=== PATIENT | male | born 1965 | race Caucasian/White ===

== ENCOUNTER 2018-08-15 14:27 | Inpatient (IN) ==
[2018-08-15] MEDS ORDERED: MORPHINE 4 MG/1 ML VIAL IV PRN (14:38)
[2018-08-15] MEDS ORDERED: MAGNESIUM SULF RIDER 4 GM in PREMIX 1 EACH IV PRN (14:38)
[2018-08-15] MEDS ORDERED: MAGNESIUM SULF RIDER 2 GM in PREMIX 1 EACH IV PRN (14:38)
[2018-08-15] MEDS ORDERED: ONDANSETRON 4 MG/2 ML VIAL IV PRN (14:38)
[2018-08-15] MEDS ORDERED: DOCUSATE SODIUM 100 MG CAPSULE PO PRN (14:38)
[2018-08-15] MEDS ORDERED: chlordiazePOXIDE 25 MG CAPSULE PO PRN (15:38)
[2018-08-15] MEDS: FUROSEMIDE 40 MG/4 ML VIAL IV SCH (15:50)
[2018-08-15] MEDS: NICOTINE 21 MG/24 HR PATCH TRANSDERM SCH (15:50)
[2018-08-15] MEDS: SPIRONOLACTONE 25 MG TABLET PO SCH (15:50)
[2018-08-15 15:54] LABS: Basophils # 0.1 10*3/uL (0.0-0.2); Basophils % 0.8 % (0.0-0.8); Hematocrit 38.8 VOL% (42.0-52.0); Hemoglobin 12.9 GM/DL (14.0-18.0); Immature Granulocytes % 0.4 %; Immature Granulocytes Absolute 0.04 #; Lymphocytes # 1.4 10*3/uL (1.4-4.0); Mean Corpuscular HGB Conc 33.2 GM/DL (32-36); Mean Corpuscular Hemoglobin 32 PG (27-34); Mean Platelet Volume 10.6 FL (9.6-12.0); Monocytes % 11.4 % (1.7-12.7); Neutrophils # 6.4 10*3/uL (1.4-7.4); Neutrophils % 71.4 % (38.7-73.9); Platelet Count 208 T/CUMM (130-400); Red Blood Count 4.04 MC/CUMM (3.8-5.5); Red Cell Distribution Width 13.1 % (9.3-17.3); White Blood Count 8.9 T/CUMM (4-12)
[2018-08-15] MEDS ORDERED: ENOXAPARIN 100 MG/ML SYRINGE SUBCUT ONE (16:00)
[2018-08-15 16:19] LABS: Albumin 3.5 G/DL (3.4-5.0); Bilirubin,Total 1.2 MG/DL (0.2-1.0); Calcium 8.9 MG/DL (8.5-10.1); Osmolality,Calculated 259.9 MOS/KG (273-304); Total Protein 7.7 G/DL (6.4-8.3)
[2018-08-15 16:26] LABS: Troponin I 0.265 NG/ML (0.00-0.045)
[2018-08-15 16:49] LABS: Apearance,Urine CLEAR (Clear); Bilirubin,Urine Negative (Negative); Blood, Urine Negative (Negative); Glucose,Urine (UA) Negative (Negative); Ketones,Urine Negative (Negative); Nitrite,Urine Negative (Negative); Protein,Urine Negative; RBC,Urine <1 /HPF (0-4); Urine Color Straw (Yellow); Urine Specific Gravity 1.006 (1.001-1.035); Urine Urobilinogen < 2.0 EU/DL (0.2-1.0); WBC,Urine <1 /HPF (0-6)
[2018-08-15] MEDS ORDERED: CALCIUM GLUCONATE 1,000 MG/10 ML VIAL IV ONE (17:10)
[2018-08-15 18:16] LABS: Troponin I 0.259 NG/ML (0.00-0.045)
[2018-08-15] MEDS: LISINOPRIL 2.5 MG TABLET PO SCH (20:29)
[2018-08-15] MEDS: THIAMINE 100 MG TABLET PO SCH (20:32)
[2018-08-15] MEDS: LORazepam 0.5 MG TABLET PO SCH (20:32)
[2018-08-15] MEDS: FOLIC ACID 1 MG TABLET PO SCH (20:32)
[2018-08-15] MEDS: CARVEDILOL 3.125 MG TABLET PO SCH (20:32)
[2018-08-15 21:00] LABS: Troponin I 0.294 NG/ML (0.00-0.045)
[2018-08-16 04:48] LABS: Basophils # 0.1 10*3/uL (0.0-0.2); Basophils % 0.8 % (0.0-0.8); Eosinophils % 0.1 % (0.00-10.9); Hematocrit 37.9 VOL% (42.0-52.0); Hemoglobin 12.4 GM/DL (14.0-18.0); Immature Granulocytes % 0.3 %; Immature Granulocytes Absolute 0.03 #; Lymphocytes # 1.5 10*3/uL (1.4-4.0); Lymphocytes % 17.6 % (21.2-54.2); Mean Corpuscular HGB Conc 32.7 GM/DL (32-36); Mean Corpuscular Hemoglobin 31 PG (27-34); Mean Corpuscular Volume 95.7 FL (87-102); Mean Platelet Volume 10.7 FL (9.6-12.0); Monocytes # 1.1 10*3/uL (0.11-0.8); Monocytes % 12.1 % (1.7-12.7); Neutrophils # 6.1 10*3/uL (1.4-7.4); Neutrophils % 69.1 % (38.7-73.9); Platelet Count 194 T/CUMM (130-400); Red Blood Count 3.96 MC/CUMM (3.8-5.5); Red Cell Distribution Width 13.1 % (9.3-17.3); White Blood Count 8.8 T/CUMM (4-12)
[2018-08-16 05:03] LABS: Albumin 3.1 G/DL (3.4-5.0); Bilirubin,Total 1.2 MG/DL (0.2-1.0); Calcium 8.4 MG/DL (8.5-10.1); Osmolality,Calculated 259.9 MOS/KG (273-304); Potassium 3.7 MMOL/L (3.5-5.1); Total Protein 7.6 G/DL (6.4-8.3)
[2018-08-16] MEDS: CARVEDILOL 3.125 MG TABLET PO SCH (08:01)
[2018-08-16] MEDS: PANTOPRAZOLE 40 MG TABLET PO SCH (08:01)
[2018-08-16] MEDS: ASPIRIN EC 81 MG TABLET PO SCH (08:01)
[2018-08-16] MEDS: FUROSEMIDE 40 MG/4 ML VIAL IV SCH ×2 (08:01→17:05)
[2018-08-16] MEDS: LISINOPRIL 2.5 MG TABLET PO SCH (08:01)
[2018-08-16] MEDS: THIAMINE 100 MG TABLET PO SCH ×2 (08:01→21:35)
[2018-08-16] MEDS: LORazepam 0.5 MG TABLET PO SCH ×2 (08:01→21:36)
[2018-08-16] MEDS: SPIRONOLACTONE 25 MG TABLET PO SCH (08:01)
[2018-08-16] MEDS: FOLIC ACID 1 MG TABLET PO SCH ×2 (08:01→21:35)
[2018-08-16] MEDS: NICOTINE 21 MG/24 HR PATCH TRANSDERM SCH (08:02)
[2018-08-16] MEDS: ISOSORBIDE MONONITRATE 30 MG TABLET PO SCH (11:11)
[2018-08-16 11:21] LABS: Barbiturates Screen,Urine Negative (Negative); Benzodiazepines Screen,Urine Negative (Negative); Cannabinoid Screen,Urine Negative (Negative); Opiate Screen,Urine Negative (Negative); Phencyclidine Screen,Urine Negative (Negative)
[2018-08-16 11:42] LABS: Apearance,Urine CLEAR (Clear); Bilirubin,Urine Negative (Negative); Blood, Urine Negative (Negative); Glucose,Urine (UA) Negative (Negative); Ketones,Urine Negative (Negative); Nitrite,Urine Negative (Negative); Protein,Urine Negative; Urine Color Straw (Yellow); Urine Specific Gravity 1.003 (1.001-1.035); Urine Urobilinogen < 2.0 EU/DL (0.2-1.0); WBC,Urine <1 /HPF (0-6)
[2018-08-16 12:04] LABS: Hepatitis A Ab IgM Quant 0.15 Index; Hepatitis A Ab IgM Result Negative (Negative); Hepatitis B Core IgM Quant 0.12 Index; Hepatitis B Core IgM Result Negative (Negative); Hepatitis B Surface Ag Quant < 0.10 Index; Hepatitis B Surface Ag Result Negative (Negative); Hepatitis C Virus Ab Quant > 11.00 Index; Hepatitis C Virus Ab Result Positive (Negative)
[2018-08-16] MEDS ORDERED: ENOXAPARIN 40 MG/0.4 ML SYRINGE SUBCUT SCH (15:00)
[2018-08-16] MEDS ORDERED: LEVOFLOXACIN INJ 500 MG in PREMIX 1 EACH IV SCH (15:00)
[2018-08-16] MEDS: ALBUTEROL 1.25 MG/3 ML NEB RESP TX SCH ×2 (16:10→19:24)
[2018-08-16] MEDS ORDERED: CARVEDILOL 6.25 MG TABLET PO SCH (21:00)
[2018-08-16] MEDS ORDERED: SERTRALINE 25 MG TABLET PO SCH (21:00)
[2018-08-16] MEDS: SACUBITRIL/VALSARTAN 49-51 MG TABLET PO SCH (21:35)
[2018-08-17] MEDS: ALBUTEROL 1.25 MG/3 ML NEB RESP TX SCH ×2 (02:28→07:26)
[2018-08-17 03:58] LABS: Basophils # 0.1 10*3/uL (0.0-0.2); Basophils % 0.9 % (0.0-0.8); Eosinophils % 0.7 % (0.00-10.9); Hematocrit 37.2 VOL% (42.0-52.0); Immature Granulocytes % 0.4 %; Immature Granulocytes Absolute 0.02 #; Lymphocytes # 1.7 10*3/uL (1.4-4.0); Lymphocytes % 29.3 % (21.2-54.2); Mean Corpuscular HGB Conc 32.3 GM/DL (32-36); Mean Corpuscular Hemoglobin 31 PG (27-34); Mean Corpuscular Volume 96.6 FL (87-102); Mean Platelet Volume 10.9 FL (9.6-12.0); Monocytes # 0.6 10*3/uL (0.11-0.8); Monocytes % 11.2 % (1.7-12.7); Neutrophils # 3.3 10*3/uL (1.4-7.4); Neutrophils % 57.5 % (38.7-73.9); Platelet Count 179 T/CUMM (130-400); Red Blood Count 3.85 MC/CUMM (3.8-5.5); White Blood Count 5.7 T/CUMM (4-12)
[2018-08-17 04:17] LABS: Calcium 7.8 MG/DL (8.5-10.1); Osmolality,Calculated 264.8 MOS/KG (273-304); Potassium 3.1 MMOL/L (3.5-5.1)
[2018-08-17] MEDS: POTASSIUM CHLORIDE 20 MEQ TABLET PO PRN ×2 (07:42→08:55)
[2018-08-17 07:59] VITALS: BP 118/68
[2018-08-17] MEDS ORDERED: CARVEDILOL 12.5 MG TABLET PO SCH (08:50)
[2018-08-17] MEDS ORDERED: LORazepam 0.5 MG TABLET PO PRN (08:50)
[2018-08-17] MEDS: NICOTINE 21 MG/24 HR PATCH TRANSDERM SCH (08:53)
[2018-08-17] MEDS: FUROSEMIDE 40 MG/4 ML VIAL IV SCH (08:53)
[2018-08-17] MEDS: ISOSORBIDE MONONITRATE 30 MG TABLET PO SCH (08:54)
[2018-08-17] MEDS: SACUBITRIL/VALSARTAN 49-51 MG TABLET PO SCH (08:54)
[2018-08-17] MEDS: FOLIC ACID 1 MG TABLET PO SCH (08:54)
[2018-08-17] MEDS: THIAMINE 100 MG TABLET PO SCH (08:55)
[2018-08-17] MEDS: ASPIRIN EC 81 MG TABLET PO SCH (08:55)
[2018-08-17] MEDS: PANTOPRAZOLE 40 MG TABLET PO SCH (08:55)
[2018-08-17] MEDS ORDERED: SPIRONOLACTONE 25 MG TABLET PO SCH (09:00)
[2018-08-17] MEDS ORDERED: POTASSIUM CHLORIDE 20 MEQ TABLET PO ONE (12:02)
[2018-08-17] MEDS ORDERED: FUROSEMIDE 40 MG/5 ML UDCUP PO SCH (16:00)
[2018-08-18] MEDS ORDERED: POTASSIUM CHLORIDE 20 MEQ TABLET PO SCH (09:00)
== END 2018-08-17 13:40 | disposition home or self-care (01) | DRG 292 ==
LOC: N.ICU 15:04 → N.TELES 08-16 14:42
PROVIDERS: ADMIT Internal Medicine Cardiovascular Disease; ATTEND Internal Medicine Cardiovascular Disease

== ENCOUNTER 2018-11-01 15:37 | Inpatient (IN) ==
[2018-11-01] MEDS ORDERED: FUROSEMIDE 100 MG/10 ML VIAL IV STA (17:24)
[2018-11-01] MEDS ORDERED: ONDANSETRON 4 MG/2 ML VIAL IV STA (17:24)
[2018-11-01] MEDS ORDERED: methylPREDNISolone SOD SUC 125 MG/2 ML VIAL IV STA (17:24)
[2018-11-01] MEDS ORDERED: ALBUTEROL 2.5 MG/3 ML NEB RESP TX SCH (17:30)
[2018-11-01] MEDS ORDERED: AMIODARONE INJ 150 MG in DEXTROSE 5% 100 ML IV ONE (18:04)
[2018-11-01 18:16] LABS: Basophils # 0.1 10*3/uL (0.0-0.2); Basophils % 0.8 % (0.0-0.8); Eosinophils # 0.5 10*3/uL (0.0-0.87); Eosinophils % 4.8 % (0.00-10.9); Hematocrit 37.1 VOL% (42.0-52.0); Hemoglobin 11.6 GM/DL (14.0-18.0); Immature Granulocytes % 0.3 %; Immature Granulocytes Absolute 0.03 #; Lymphocytes # 1.8 10*3/uL (1.4-4.0); Lymphocytes % 18.9 % (21.2-54.2); Mean Corpuscular HGB Conc 31.3 GM/DL (32-36); Mean Corpuscular Volume 91.6 FL (87-102); Mean Platelet Volume 10.9 FL (9.6-12.0); Monocytes % 12.6 % (1.7-12.7); Neutrophils % 62.6 % (38.7-73.9); Platelet Count 207 T/CUMM (130-400); Red Blood Count 4.05 MC/CUMM (3.8-5.5); Red Cell Distribution Width 16.3 % (9.3-17.3); White Blood Count 9.6 T/CUMM (4-12)
[2018-11-01 18:29] LABS: INR 1.1; PT Patient Result 11.8 SECS
[2018-11-01 18:46] LABS: Apearance,Urine CLEAR (Clear); Bilirubin,Urine Negative (Negative); Blood, Urine Negative (Negative); Glucose,Urine (UA) Negative (Negative); Ketones,Urine Negative (Negative); Nitrite,Urine Negative (Negative); Protein,Urine Negative; RBC,Urine <1 /HPF (0-4); Urine Color Straw (Yellow); Urine Specific Gravity 1.005 (1.001-1.035)
[2018-11-01 18:53] LABS: Alanine Aminotransferase 66 U/L (16-61); Albumin 3.4 G/DL (3.4-5.0); Alkaline Phosphatase 126 U/L (45-117); Aspartate Amino Transferase 78 U/L (0-37); Blood Urea Nitrogen 19 MG/DL (7-18); Calcium 8.5 MG/DL (8.5-10.1); Glucose 86 MG/DL (74-106); Osmolality,Calculated 270.1 MOS/KG (273-304)
[2018-11-01] MEDS ORDERED: AMIODARONE INJ 450 MG in DEXTROSE 5% 241 ML IV SCH (19:00)
[2018-11-01 19:13] LABS: Barbiturates Screen,Urine Negative (Negative); Benzodiazepines Screen,Urine Negative (Negative); Cannabinoid Screen,Urine Negative (Negative); Opiate Screen,Urine Negative (Negative); Phencyclidine Screen,Urine Negative (Negative)
[2018-11-01] MEDS ORDERED: MAGNESIUM SULF RIDER 2 GM in PREMIX 1 EACH IV PRN (20:54)
[2018-11-01] MEDS ORDERED: MAGNESIUM SULF RIDER 4 GM in PREMIX 1 EACH IV PRN (20:54)
[2018-11-01] MEDS ORDERED: ONDANSETRON 4 MG/2 ML VIAL IV PRN (20:54)
[2018-11-02] MEDS: ENOXAPARIN 40 MG/0.4 ML SYRINGE SUBCUT SCH ×2 (01:04→21:03)
[2018-11-02] MEDS: CARVEDILOL 12.5 MG TABLET PO SCH ×3 (01:05→16:32)
[2018-11-02] MEDS: SACUBITRIL/VALSARTAN 49-51 MG TABLET PO SCH ×2 (01:05→21:03)
[2018-11-02] MEDS: buPROPion 75 MG TABLET PO SCH ×3 (01:05→21:04)
[2018-11-02] MEDS ORDERED: AMIODARONE INJ 450 MG in DEXTROSE 5% 241 ML IV SCH (02:00)
[2018-11-02 07:29] LABS: Basophils % 0.1 % (0.0-0.8); Eosinophils % 0.1 % (0.00-10.9); Hematocrit 38.4 VOL% (42.0-52.0); Hemoglobin 12.1 GM/DL (14.0-18.0); Immature Granulocytes % 0.6 %; Immature Granulocytes Absolute 0.05 #; Lymphocytes # 0.8 10*3/uL (1.4-4.0); Lymphocytes % 9.9 % (21.2-54.2); Mean Corpuscular HGB Conc 31.5 GM/DL (32-36); Mean Platelet Volume 11.2 FL (9.6-12.0); Monocytes % 2.6 % (1.7-12.7); Neutrophils % 86.7 % (38.7-73.9); Platelet Count 217 T/CUMM (130-400); Red Blood Count 4.22 MC/CUMM (3.8-5.5); Red Cell Distribution Width 16.5 % (9.3-17.3); White Blood Count 8.1 T/CUMM (4-12)
[2018-11-02 07:50] LABS: Albumin 3.2 G/DL (3.4-5.0); Bilirubin,Total 1.3 MG/DL (0.2-1.0); Calcium 8.2 MG/DL (8.5-10.1); Osmolality,Calculated 268.8 MOS/KG (273-304); Total Protein 8.1 G/DL (6.4-8.3)
[2018-11-02] MEDS: ISOSORBIDE MONONITRATE 30 MG TABLET PO SCH (10:56)
[2018-11-02] MEDS: FOLIC ACID 1 MG TABLET PO SCH ×2 (10:56→21:03)
[2018-11-02] MEDS: FUROSEMIDE 40 MG/4 ML VIAL IV SCH ×2 (10:56→16:32)
[2018-11-02] MEDS: POTASSIUM CHLORIDE 20 MEQ TABLET PO SCH (10:57)
[2018-11-02] MEDS: ASPIRIN CHEW 81 MG TABLET PO SCH (10:57)
[2018-11-02] MEDS: THIAMINE 100 MG TABLET PO SCH ×2 (10:58→21:03)
[2018-11-02] MEDS: SPIRONOLACTONE 25 MG TABLET PO SCH (10:58)
[2018-11-02] MEDS: PANTOPRAZOLE 40 MG TABLET PO SCH (11:02)
[2018-11-03 05:45] LABS: Albumin 2.8 G/DL (3.4-5.0); Bilirubin,Total 1.2 MG/DL (0.2-1.0); Calcium 8.4 MG/DL (8.5-10.1); Osmolality,Calculated 272.7 MOS/KG (273-304); Total Protein 7.2 G/DL (6.4-8.3)
[2018-11-03] MEDS: FUROSEMIDE 40 MG/4 ML VIAL IV SCH (08:27)
[2018-11-03] MEDS: CARVEDILOL 12.5 MG TABLET PO SCH ×2 (08:27→16:59)
[2018-11-03] MEDS: FOLIC ACID 1 MG TABLET PO SCH ×2 (09:34→20:10)
[2018-11-03] MEDS: ISOSORBIDE MONONITRATE 30 MG TABLET PO SCH (09:35)
[2018-11-03] MEDS: ASPIRIN CHEW 81 MG TABLET PO SCH (09:35)
[2018-11-03] MEDS: THIAMINE 100 MG TABLET PO SCH ×2 (09:35→20:10)
[2018-11-03] MEDS: POTASSIUM CHLORIDE 20 MEQ TABLET PO SCH (09:35)
[2018-11-03] MEDS: PANTOPRAZOLE 40 MG TABLET PO SCH (09:35)
[2018-11-03] MEDS: SPIRONOLACTONE 25 MG TABLET PO SCH (09:36)
[2018-11-03] MEDS: buPROPion 75 MG TABLET PO SCH ×2 (09:44→20:10)
[2018-11-03] MEDS: ENOXAPARIN 40 MG/0.4 ML SYRINGE SUBCUT SCH (20:09)
[2018-11-03] MEDS: SACUBITRIL/VALSARTAN 49-51 MG TABLET PO SCH (20:09)
[2018-11-04 05:25] LABS: Basophils # 0.1 10*3/uL (0.0-0.2); Basophils % 0.7 % (0.0-0.8); Eosinophils # 0.1 10*3/uL (0.0-0.87); Eosinophils % 0.8 % (0.00-10.9); Hematocrit 37.3 VOL% (42.0-52.0); Hemoglobin 11.7 GM/DL (14.0-18.0); Immature Granulocytes % 0.4 %; Immature Granulocytes Absolute 0.05 #; Lymphocytes # 2.8 10*3/uL (1.4-4.0); Mean Corpuscular HGB Conc 31.4 GM/DL (32-36); Mean Corpuscular Volume 91.2 FL (87-102); Mean Platelet Volume 11.5 FL (9.6-12.0); Monocytes % 9.1 % (1.7-12.7); Platelet Count 241 T/CUMM (130-400); Red Blood Count 4.09 MC/CUMM (3.8-5.5); Red Cell Distribution Width 16.3 % (9.3-17.3); White Blood Count 11.8 T/CUMM (4-12)
[2018-11-04 05:46] LABS: Albumin 2.8 G/DL (3.4-5.0); Calcium 8.3 MG/DL (8.5-10.1); Osmolality,Calculated 274.5 MOS/KG (273-304); Total Protein 6.9 G/DL (6.4-8.3)
[2018-11-04] MEDS ORDERED: FUROSEMIDE 40 MG/4 ML VIAL IV SCH (09:00)
[2018-11-04] MEDS: POTASSIUM CHLORIDE 20 MEQ TABLET PO SCH (09:05)
[2018-11-04] MEDS: PANTOPRAZOLE 40 MG TABLET PO SCH (09:06)
[2018-11-04] MEDS: ASPIRIN CHEW 81 MG TABLET PO SCH (09:07)
[2018-11-04] MEDS: SPIRONOLACTONE 25 MG TABLET PO SCH (09:07)
[2018-11-04] MEDS: THIAMINE 100 MG TABLET PO SCH (09:07)
[2018-11-04] MEDS: FOLIC ACID 1 MG TABLET PO SCH (09:07)
[2018-11-04] MEDS: ISOSORBIDE MONONITRATE 30 MG TABLET PO SCH (09:07)
[2018-11-04] MEDS: buPROPion 75 MG TABLET PO SCH (09:07)
[2018-11-04] MEDS: CARVEDILOL 12.5 MG TABLET PO SCH (09:08)
[2018-11-04 12:35] VITALS: BP 90/47
== END 2018-11-04 14:45 | disposition home or self-care (01) | DRG 308 ==
LOC: N.ED 15:37 → N.EDINP 20:54 → N.TELEN 22:12
PROVIDERS: ADMIT Internal Medicine; ATTEND Internal Medicine

== ENCOUNTER 2019-05-31 13:40 | Inpatient (IN) ==
[2019-05-31] MEDS ORDERED: FUROSEMIDE 40 MG/4 ML VIAL IV STA (14:24)
[2019-05-31 14:31] LABS: Basophils # 0.1 10*3/uL (0.0-0.2); Basophils % 1.4 % (0.0-0.8); Eosinophils # 0.3 10*3/uL (0.0-0.87); Eosinophils % 3.4 % (0.00-10.9); Hemoglobin 9.3 GM/DL (14.0-18.0); Immature Granulocytes % 0.3 %; Immature Granulocytes Absolute 0.02 #; Lymphocytes # 1.7 10*3/uL (1.4-4.0); Lymphocytes % 21.3 % (21.2-54.2); Mean Corpuscular Volume 83.3 FL (87-102); Mean Platelet Volume 9.9 FL (9.6-12.0); Monocytes % 10.6 % (1.7-12.7); Platelet Count 244 T/CUMM (130-400); Red Cell Distribution Width 16.4 % (9.3-17.3)
[2019-05-31 15:08] LABS: Albumin 3.3 G/DL (3.4-5.0); Bilirubin,Total 0.8 MG/DL (0.2-1.0); Calcium 8.9 MG/DL (8.5-10.1); Osmolality,Calculated 263.7 MOS/KG (273-304); Total Protein 8.4 G/DL (6.4-8.3)
[2019-05-31] MEDS ORDERED: NICOTINE 21 MG/24 HR PATCH TRANSDERM PRN (16:25)
[2019-05-31] MEDS ORDERED: LACTULOSE 20 GM/30 ML UDCUP PO PRN (16:25)
[2019-05-31] MEDS ORDERED: ACETAMINOPHEN 325 MG TABLET PO PRN (16:25)
[2019-05-31] MEDS ORDERED: ALBUTEROL/IPRATROPIUM 3 ML NEB RESP TX PRN (16:59)
[2019-05-31 17:00] LABS: INR 1.1
[2019-05-31] MEDS ORDERED: LEVOFLOXACIN INJ 500 MG in PREMIX 1 EACH IV SCH (17:00)
[2019-05-31 17:23] LABS: Thyroid Stimulating Hormone 3.09 uIU/ml (0.358-3.74)
[2019-05-31 18:25] LABS: Albumin 3.4 G/DL (3.4-5.0); Total Protein 8.7 G/DL (6.4-8.3)
[2019-05-31 18:39] LABS: Barbiturates Screen,Urine Negative (Negative); Benzodiazepines Screen,Urine Negative (Negative); Cannabinoid Screen,Urine Negative (Negative); Opiate Screen,Urine Negative (Negative); Phencyclidine Screen,Urine Negative (Negative)
[2019-05-31] MEDS: ALBUTEROL/IPRATROPIUM 3 ML NEB RESP TX SCH (19:18)
[2019-05-31] MEDS ORDERED: ENOXAPARIN 40 MG/0.4 ML SYRINGE SUBCUT SCH (21:00)
[2019-05-31 21:36] LABS: Troponin I 0.044 NG/ML (0.00-0.045)
[2019-05-31 22:03] LABS: Apearance,Urine CLEAR (Clear); Bilirubin,Urine Negative (Negative); Blood, Urine Negative (Negative); Glucose,Urine (UA) Negative (Negative); Ketones,Urine Negative (Negative); Nitrite,Urine Negative (Negative); Protein,Urine Negative; RBC,Urine 1 /HPF (0-4); Urine Color Yellow (Yellow); Urine Specific Gravity 1.017 (1.001-1.035); Urine Urobilinogen < 2.0 EU/DL (0.2-1.0); WBC,Urine <1 /HPF (0-6)
[2019-06-01] MEDS: ALBUTEROL/IPRATROPIUM 3 ML NEB RESP TX SCH ×3 (01:45→12:58)
[2019-06-01 05:52] LABS: Basophils # 0.1 10*3/uL (0.0-0.2); Basophils % 1.4 % (0.0-0.8); Eosinophils # 0.2 10*3/uL (0.0-0.87); Eosinophils % 2.3 % (0.00-10.9); Hematocrit 26.8 VOL% (42.0-52.0); Hemoglobin 8.3 GM/DL (14.0-18.0); Immature Granulocytes % 0.5 %; Immature Granulocytes Absolute 0.04 #; Lymphocytes # 1.6 10*3/uL (1.4-4.0); Lymphocytes % 20.6 % (21.2-54.2); Mean Corpuscular Volume 82.5 FL (87-102); Mean Platelet Volume 9.5 FL (9.6-12.0); Monocytes % 12.8 % (1.7-12.7); Neutrophils % 62.4 % (38.7-73.9); Platelet Count 220 T/CUMM (130-400); Red Blood Count 3.25 MC/CUMM (3.8-5.5); Red Cell Distribution Width 16.3 % (9.3-17.3); White Blood Count 7.9 T/CUMM (4-12)
[2019-06-01 06:05] LABS: Calcium 8.7 MG/DL (8.5-10.1); Osmolality,Calculated 261.8 MOS/KG (273-304)
[2019-06-01 06:14] LABS: Troponin I 0.062 NG/ML (0.00-0.045)
[2019-06-01] MEDS ORDERED: FUROSEMIDE 40 MG/4 ML VIAL IV SCH (08:00)
[2019-06-01] MEDS ORDERED: PANTOPRAZOLE 40 MG TABLET PO SCH (09:00)
[2019-06-01] MEDS ORDERED: ASPIRIN CHEW 81 MG TABLET PO SCH (09:00)
[2019-06-01] MEDS ORDERED: SPIRONOLACTONE 25 MG TABLET PO SCH (09:00)
[2019-06-01] MEDS ORDERED: SODIUM CHLORIDE 0.9% 1,000 ML IV PRN (09:16)
[2019-06-01] MEDS ORDERED: FUROSEMIDE 20 MG/2 ML VIAL IV ONE (11:46)
[2019-06-01 12:10] VITALS: BP 119/60
== END 2019-06-01 13:00 | disposition left against medical advice (07) | DRG 292 ==
LOC: N.ED 13:40 → N.EDINP 16:25 → N.2E 18:15
PROVIDERS: ADMIT Internal Medicine; ATTEND Internal Medicine
PROC: IRTHORA (2019-06-01 01:00)

== ENCOUNTER 2019-06-03 06:36 | Observation (INO) ==
[2019-06-03] MEDS ORDERED: FUROSEMIDE 40 MG/4 ML VIAL IV STA (07:02)
[2019-06-03] MEDS ORDERED: ALBUTEROL 2.5 MG/3 ML NEB RESP TX STA (07:03)
[2019-06-03 07:20] LABS: Basophils # 0.1 10*3/uL (0.0-0.2); Basophils % 1.5 % (0.0-0.8); Eosinophils # 0.2 10*3/uL (0.0-0.87); Eosinophils % 2.6 % (0.00-10.9); Hematocrit 27.6 VOL% (42.0-52.0); Hemoglobin 8.6 GM/DL (14.0-18.0); Immature Granulocytes % 0.4 %; Immature Granulocytes Absolute 0.03 #; Lymphocytes # 1.4 10*3/uL (1.4-4.0); Lymphocytes % 17.4 % (21.2-54.2); Mean Corpuscular HGB Conc 31.2 GM/DL (32-36); Mean Corpuscular Volume 83.4 FL (87-102); Mean Platelet Volume 9.4 FL (9.6-12.0); Monocytes % 11.6 % (1.7-12.7); Neutrophils % 66.5 % (38.7-73.9); Platelet Count 236 T/CUMM (130-400); Red Blood Count 3.31 MC/CUMM (3.8-5.5); Red Cell Distribution Width 16.1 % (9.3-17.3)
[2019-06-03 07:41] LABS: Calcium 8.7 MG/DL (8.5-10.1); Osmolality,Calculated 262.8 MOS/KG (273-304)
[2019-06-03] MEDS ORDERED: MAGNESIUM SULF RIDER 2 GM in PREMIX 1 EACH IV PRN (10:25)
[2019-06-03] MEDS ORDERED: MAGNESIUM SULF RIDER 4 GM in PREMIX 1 EACH IV PRN (10:25)
[2019-06-03] MEDS ORDERED: carvediloL 3.125 MG TABLET PO STA (10:33)
[2019-06-03] MEDS ORDERED: ISOSORBIDE MONONITRATE 30 MG TABLET PO SCH (12:00)
[2019-06-03] MEDS: NICOTINE 21 MG/24 HR PATCH TRANSDERM SCH (13:24)
[2019-06-03] MEDS: THIAMINE 100 MG TABLET PO SCH (13:24)
[2019-06-03] MEDS: SPIRONOLACTONE 25 MG TABLET PO SCH (13:24)
[2019-06-03 15:51] LABS: Barbiturates Screen,Urine Negative (Negative); Benzodiazepines Screen,Urine Negative (Negative); Cannabinoid Screen,Urine Negative (Negative); Opiate Screen,Urine Negative (Negative); Phencyclidine Screen,Urine Negative (Negative)
[2019-06-03] MEDS: FUROSEMIDE 40 MG/4 ML VIAL IV SCH (16:21)
[2019-06-03] MEDS: carvediloL 12.5 MG TABLET PO SCH (16:24)
[2019-06-03] MEDS ORDERED: LEVALBUTEROL 1.25 MG/3 ML NEB RESP TX PRN (16:32)
[2019-06-03] MEDS ORDERED: TEMAZEPAM 15 MG CAPSULE PO PRN (16:34)
[2019-06-03] MEDS ORDERED: SACUBITRIL/VALSARTAN 49-51 MG TABLET PO SCH (21:00)
[2019-06-03] MEDS: FOLIC ACID 1 MG TABLET PO SCH (21:23)
[2019-06-04 05:57] LABS: Basophils # 0.1 10*3/uL (0.0-0.2); Basophils % 1.3 % (0.0-0.8); Eosinophils # 0.3 10*3/uL (0.0-0.87); Eosinophils % 3.5 % (0.00-10.9); Hematocrit 25.9 VOL% (42.0-52.0); Immature Granulocytes % 0.4 %; Immature Granulocytes Absolute 0.03 #; Lymphocytes # 1.5 10*3/uL (1.4-4.0); Lymphocytes % 18.1 % (21.2-54.2); Mean Corpuscular HGB Conc 30.9 GM/DL (32-36); Mean Corpuscular Volume 82.2 FL (87-102); Monocytes % 14.3 % (1.7-12.7); Neutrophils % 62.4 % (38.7-73.9); Platelet Count 248 T/CUMM (130-400); Red Blood Count 3.15 MC/CUMM (3.8-5.5); White Blood Count 8.2 T/CUMM (4-12)
[2019-06-04 06:15] LABS: Albumin 3.3 G/DL (3.4-5.0); Bilirubin,Total 0.7 MG/DL (0.2-1.0); Calcium 8.4 MG/DL (8.5-10.1); Osmolality,Calculated 265.7 MOS/KG (273-304); Total Protein 8.2 G/DL (6.4-8.3)
[2019-06-04] MEDS ORDERED: SODIUM CHLORIDE 0.9% 1,000 ML IV PRN ×3 (08:11→11:33)
[2019-06-04 08:25] LABS: INR 1.1
[2019-06-04] MEDS ORDERED: POTASSIUM CHLORIDE 10 MEQ TABLET PO SCH (09:00)
[2019-06-04] MEDS ORDERED: LISINOPRIL 2.5 MG TABLET PO SCH (09:00)
[2019-06-04] MEDS ORDERED: METOPROLOL SUCCINATE XL 25 MG TABLET PO SCH (09:00)
[2019-06-04] MEDS: THIAMINE 100 MG TABLET PO SCH (09:37)
[2019-06-04] MEDS: carvediloL 12.5 MG TABLET PO SCH (09:37)
[2019-06-04] MEDS: NICOTINE 21 MG/24 HR PATCH TRANSDERM SCH (09:37)
[2019-06-04] MEDS: FOLIC ACID 1 MG TABLET PO SCH (09:38)
[2019-06-04] MEDS: FUROSEMIDE 40 MG/4 ML VIAL IV SCH ×2 (09:46→15:35)
[2019-06-04] MEDS: SPIRONOLACTONE 25 MG TABLET PO SCH (09:46)
[2019-06-04 12:04] LABS: % Iron Saturation 4.2 % (18-50); Ferritin 18.9 ng/ml (26-388)
[2019-06-04 13:10] LABS: Folate 9.6 NG/ML (5.4-24.0)
[2019-06-04 16:41] LABS: Albumin 3.4 G/DL (3.4-5.0)
[2019-06-04 16:56] LABS: Hematocrit 29.4 VOL% (42.0-52.0); Hemoglobin 9.2 GM/DL (14.0-18.0)
[2019-06-04 17:19] VITALS: BP 116/68
== END 2019-06-04 18:00 | disposition home or self-care (01) ==
LOC: N.ED 06:36 → N.EDINP 06:36 → N.2E 11:35
PROVIDERS: ADMIT Internal Medicine; ATTEND Internal Medicine
PROC: IRTHORA (2019-06-04 14:35)

== ENCOUNTER 2019-06-12 10:26 | Inpatient (IN) ==
[2019-06-12] MEDS ORDERED: FUROSEMIDE 100 MG/10 ML VIAL ONE (10:52)
[2019-06-12] MEDS ORDERED: FUROSEMIDE 100 MG/10 ML VIAL IV STA (10:56)
[2019-06-12] MEDS ORDERED: ALBUTEROL/IPRATROPIUM 3 ML NEB RESP TX STA (10:56)
[2019-06-12 11:04] LABS: Basophils # 0.1 10*3/uL (0.0-0.2); Basophils % 0.7 % (0.0-0.8); Eosinophils # 0.2 10*3/uL (0.0-0.87); Eosinophils % 1.6 % (0.00-10.9); Hematocrit 31.9 VOL% (42.0-52.0); Hemoglobin 9.7 GM/DL (14.0-18.0); Immature Granulocytes % 0.5 %; Immature Granulocytes Absolute 0.07 #; Lymphocytes # 1.2 10*3/uL (1.4-4.0); Lymphocytes % 8.8 % (21.2-54.2); Mean Corpuscular HGB Conc 30.4 GM/DL (32-36); Mean Corpuscular Volume 83.5 FL (87-102); Mean Platelet Volume 9.7 FL (9.6-12.0); Monocytes % 10.7 % (1.7-12.7); Neutrophils % 77.7 % (38.7-73.9); Platelet Count 286 T/CUMM (130-400); Red Blood Count 3.82 MC/CUMM (3.8-5.5); Red Cell Distribution Width 16.3 % (9.3-17.3); White Blood Count 13.8 T/CUMM (4-12)
[2019-06-12 11:24] LABS: Albumin 3.4 G/DL (3.4-5.0); Bilirubin,Total 0.8 MG/DL (0.2-1.0); Calcium 8.3 MG/DL (8.5-10.1); Osmolality,Calculated 273.4 MOS/KG (273-304); Total Protein 8.2 G/DL (6.4-8.3)
[2019-06-12 12:46] LABS: Barbiturates Screen,Urine Negative (Negative); Benzodiazepines Screen,Urine Negative (Negative); Cannabinoid Screen,Urine Negative (Negative); Opiate Screen,Urine Negative (Negative); Phencyclidine Screen,Urine Negative (Negative)
[2019-06-12] MEDS ORDERED: guaiFENesin/DM ER 600-30 MG TABLET PO PRN (13:03)
[2019-06-12] MEDS ORDERED: NICOTINE 21 MG/24 HR PATCH TRANSDERM PRN (13:03)
[2019-06-12] MEDS ORDERED: ONDANSETRON 4 MG/2 ML VIAL IV PRN (13:03)
[2019-06-12] MEDS ORDERED: LORazepam 1 MG TABLET PO PRN (13:10)
[2019-06-12 13:51] LABS: ABG Oxygen Saturation 17.7 % (95-100); ABG PCO2 52.2 MM HG (35-48); ABG PH 7.331 (7.35-7.45); ABG TCO2 25.8 MMOL/L (23-27)
[2019-06-12 13:59] LABS: ABG PO2 16.7 MM HG (80-95)
[2019-06-12 13:59] LABS: Risk Ratio 3.42; VLDL CHOLESTEROL 18.2 MG/DL
[2019-06-12 14:34] LABS: INR 1.1; PT Patient Result 12.1 SECS (9.6-12.2); Partial Thromboplastin Time 27.3 SECS (20.8-36.0)
[2019-06-12] MEDS: FUROSEMIDE 40 MG/4 ML VIAL IV SCH (16:02)
[2019-06-12] MEDS: THIAMINE 100 MG TABLET PO SCH (16:02)
[2019-06-12] MEDS: carvediloL 12.5 MG TABLET PO SCH (17:45)
[2019-06-12] MEDS: ALBUTEROL/IPRATROPIUM 3 ML NEB RESP TX SCH (19:06)
[2019-06-12] MEDS: FOLIC ACID 1 MG TABLET PO SCH (21:31)
[2019-06-12] MEDS: FERROUS SULFATE 325 MG TABLET PO SCH (21:32)
[2019-06-13] MEDS: ALBUTEROL/IPRATROPIUM 3 ML NEB RESP TX SCH ×4 (00:10→20:04)
[2019-06-13 06:55] LABS: Basophils # 0.1 10*3/uL (0.0-0.2); Basophils % 0.4 % (0.0-0.8); Eosinophils # 0.1 10*3/uL (0.0-0.87); Eosinophils % 0.8 % (0.00-10.9); Hematocrit 29.3 VOL% (42.0-52.0); Hemoglobin 8.8 GM/DL (14.0-18.0); Immature Granulocytes % 0.5 %; Immature Granulocytes Absolute 0.08 #; Lymphocytes # 1.6 10*3/uL (1.4-4.0); Lymphocytes % 10.6 % (21.2-54.2); Mean Corpuscular Volume 81.8 FL (87-102); Mean Platelet Volume 9.9 FL (9.6-12.0); Monocytes % 16.9 % (1.7-12.7); Neutrophils % 70.8 % (38.7-73.9); Platelet Count 267 T/CUMM (130-400); Red Blood Count 3.58 MC/CUMM (3.8-5.5); Red Cell Distribution Width 16.4 % (9.3-17.3); White Blood Count 15.2 T/CUMM (4-12)
[2019-06-13 07:16] LABS: Calcium 8.3 MG/DL (8.5-10.1); Osmolality,Calculated 264.9 MOS/KG (273-304)
[2019-06-13 07:21] LABS: Eosinophils 1 % (0-10); Hypochromasia 1+; Lymphocytes 10 % (20-55); Platelet Estimate Adequate; Segmented Neutrophils 71 % (50-85); Total Cells Counted 100
[2019-06-13] MEDS ORDERED: LACTULOSE 20 GM/30 ML UDCUP PO PRN (07:57)
[2019-06-13] MEDS ORDERED: ASPIRIN EC 81 MG TABLET PO SCH (09:00)
[2019-06-13] MEDS ORDERED: METOPROLOL SUCCINATE XL 25 MG TABLET PO SCH (09:00)
[2019-06-13] MEDS ORDERED: CLOPIDOGREL 75 MG TABLET PO SCH (09:00)
[2019-06-13 10:10] LABS: Lymphocytes,Pleural Fluid 73 %; Monocytes,Pleural Fluid 5 %; Neutrophils,Pleural Fluid 22 %
[2019-06-13 10:20] LABS: Total Protein,Pleural Fluid 4.2 G/DL
[2019-06-13] MEDS: SPIRONOLACTONE 25 MG TABLET PO SCH (10:47)
[2019-06-13] MEDS: THIAMINE 100 MG TABLET PO SCH (10:47)
[2019-06-13] MEDS: FOLIC ACID 1 MG TABLET PO SCH ×2 (10:48→21:11)
[2019-06-13] MEDS: PANTOPRAZOLE 40 MG TABLET PO SCH (10:48)
[2019-06-13] MEDS: FUROSEMIDE 40 MG/4 ML VIAL IV SCH ×2 (10:48→17:31)
[2019-06-13] MEDS: FERROUS SULFATE 325 MG TABLET PO SCH ×2 (10:48→21:12)
[2019-06-13] MEDS: carvediloL 12.5 MG TABLET PO SCH ×2 (10:48→17:31)
[2019-06-13] MEDS: ISOSORBIDE MONONITRATE 30 MG TABLET PO SCH (10:48)
[2019-06-13 10:54] LABS: RBC,Pleural Fluid 21578 T/CUMM
[2019-06-13] MEDS: hydrALAZINE 25 MG TABLET PO SCH ×2 (15:32→21:11)
[2019-06-13] MEDS: ASPIRIN EC 81 MG TABLET PO SCH (15:32)
[2019-06-13] MEDS ORDERED: ENOXAPARIN 40 MG/0.4 ML SYRINGE SUBCUT SCH (21:00)
[2019-06-14] MEDS: ALBUTEROL/IPRATROPIUM 3 ML NEB RESP TX SCH ×2 (01:08→07:38)
[2019-06-14 06:18] LABS: Basophils % 0.4 % (0.0-0.8); Eosinophils # 0.1 10*3/uL (0.0-0.87); Eosinophils % 1.2 % (0.00-10.9); Hematocrit 26.3 VOL% (42.0-52.0); Immature Granulocytes % 0.3 %; Immature Granulocytes Absolute 0.03 #; Lymphocytes # 1.4 10*3/uL (1.4-4.0); Lymphocytes % 15.4 % (21.2-54.2); Mean Corpuscular HGB Conc 30.4 GM/DL (32-36); Mean Corpuscular Volume 81.4 FL (87-102); Mean Platelet Volume 10.1 FL (9.6-12.0); Monocytes % 12.3 % (1.7-12.7); Neutrophils % 70.4 % (38.7-73.9); Platelet Count 236 T/CUMM (130-400); Red Blood Count 3.23 MC/CUMM (3.8-5.5); Red Cell Distribution Width 16.2 % (9.3-17.3); White Blood Count 9.2 T/CUMM (4-12)
[2019-06-14 06:32] LABS: Osmolality,Calculated 271.5 MOS/KG (273-304)
[2019-06-14 06:34] LABS: Albumin 2.5 G/DL (3.4-5.0); Bilirubin,Total 1.1 MG/DL (0.2-1.0); Calcium 7.8 MG/DL (8.5-10.1); Osmolality,Calculated 272.4 MOS/KG (273-304); Total Protein 7.2 G/DL (6.4-8.3)
[2019-06-14] MEDS: SPIRONOLACTONE 25 MG TABLET PO SCH (08:02)
[2019-06-14] MEDS: hydrALAZINE 25 MG TABLET PO SCH (08:02)
[2019-06-14] MEDS: FOLIC ACID 1 MG TABLET PO SCH (08:02)
[2019-06-14] MEDS: THIAMINE 100 MG TABLET PO SCH (08:02)
[2019-06-14] MEDS: ASPIRIN EC 81 MG TABLET PO SCH (08:02)
[2019-06-14] MEDS: ISOSORBIDE MONONITRATE 30 MG TABLET PO SCH (08:02)
[2019-06-14] MEDS: FERROUS SULFATE 325 MG TABLET PO SCH (08:03)
[2019-06-14] MEDS: FUROSEMIDE 40 MG/4 ML VIAL IV SCH (08:03)
[2019-06-14] MEDS: carvediloL 12.5 MG TABLET PO SCH (08:03)
[2019-06-14] MEDS: PANTOPRAZOLE 40 MG TABLET PO SCH (08:04)
[2019-06-14 08:08] VITALS: BP 99/59
== END 2019-06-14 12:10 | disposition home or self-care (01) | DRG 291 ==
LOC: N.ED 10:26 → N.EDINP 13:03 → N.TELES 13:37
PROVIDERS: ADMIT Internal Medicine; ATTEND Internal Medicine

== ENCOUNTER 2020-06-19 07:36 | Inpatient (IN) ==
[2020-06-19] MEDS ORDERED: FUROSEMIDE 100 MG/10 ML VIAL IV STA (08:15)
[2020-06-19 08:50] LABS: Allen Test Positive
[2020-06-19 08:51] LABS: ABG Base Excess -0.4 MMOL/L (-2.5-2.5); ABG HCO3 24.1 MMOL/L (20-26); ABG Oxygen Saturation 97.2 % (95-100); ABG PCO2 38.9 MM HG (35-48); ABG PH 7.401 (7.35-7.45); ABG PO2 88.1 MM HG (80-95); ABG TCO2 21.1 MMOL/L (23-27)
[2020-06-19 09:06] LABS: Basophils # 0.1 10*3/uL (0.0-0.2); Basophils % 0.7 % (0.0-0.8); Eosinophils # 0.2 10*3/uL (0.0-0.87); Hematocrit 40.9 VOL% (42.0-52.0); Hemoglobin 13.1 GM/DL (14.0-18.0); Immature Granulocytes % 0.5 %; Immature Granulocytes Absolute 0.04 #; Lymphocytes # 1.3 10*3/uL (1.4-4.0); Lymphocytes % 14.5 % (21.2-54.2); Mean Corpuscular Volume 87.6 FL (87-102); Mean Platelet Volume 10.7 FL (9.6-12.0); Monocytes % 11.2 % (1.7-12.7); Neutrophils % 71.1 % (38.7-73.9); Platelet Count 206 T/CUMM (130-400); Red Blood Count 4.67 MC/CUMM (3.8-5.5); Red Cell Distribution Width 15.9 % (9.3-17.3); White Blood Count 8.6 T/CUMM (4-12)
[2020-06-19 09:29] LABS: Albumin 3.6 G/DL (3.4-5.0); Bilirubin,Total 1.5 MG/DL (0.2-1.0); Calcium 8.8 MG/DL (8.5-10.1); Osmolality,Calculated 269.5 MOS/KG (273-304); Total Protein 8.4 G/DL (6.4-8.3)
[2020-06-19 10:42] LABS: Bacteria,Urine Occasional /HPF (Few); Bilirubin,Urine Negative (Negative); Blood, Urine Negative (Negative); Glucose,Urine (UA) Negative (Negative); Hyaline Casts,Urine 3 /LPF (0-3); Ketones,Urine Negative (Negative); Nitrite,Urine Negative (Negative); Protein,Urine Negative; RBC,Urine 1 /HPF (0-4); Urine Appearance CLEAR (Clear); Urine Color Yellow (Yellow); Urine Specific Gravity 1.009 (1.001-1.035); WBC,Urine <1 /HPF (0-6)
[2020-06-19 10:49] LABS: Barbiturates Screen,Urine Negative (Negative); Benzodiazepines Screen,Urine Negative (Negative); Cannabinoid Screen,Urine Negative (Negative); Opiate Screen,Urine Negative (Negative); Phencyclidine Screen,Urine Negative (Negative)
[2020-06-19] MEDS ORDERED: DEXTROSE 50% 25 GM/50 ML VIAL IV PRN (12:24)
[2020-06-19] MEDS ORDERED: GLUCAGON 1 MG VIAL IM PRN (12:24)
[2020-06-19] MEDS ORDERED: NITROGLYCERIN SL 0.4 MG TABLET SL PRN (13:19)
[2020-06-19 15:00] LABS: Basophils # 0.1 10*3/uL (0.0-0.2); Basophils % 0.8 % (0.0-0.8); Eosinophils # 0.2 10*3/uL (0.0-0.87); Eosinophils % 2.1 % (0.00-10.9); Hematocrit 40.5 VOL% (42.0-52.0); Hemoglobin 12.7 GM/DL (14.0-18.0); Immature Granulocytes % 0.3 %; Immature Granulocytes Absolute 0.02 #; Lymphocytes # 1.5 10*3/uL (1.4-4.0); Lymphocytes % 19.6 % (21.2-54.2); Mean Corpuscular HGB Conc 31.4 GM/DL (32-36); Mean Corpuscular Volume 89.2 FL (87-102); Mean Platelet Volume 10.5 FL (9.6-12.0); Monocytes % 10.5 % (1.7-12.7); Neutrophils % 66.7 % (38.7-73.9); Platelet Count 199 T/CUMM (130-400); Red Blood Count 4.54 MC/CUMM (3.8-5.5); White Blood Count 7.8 T/CUMM (4-12)
[2020-06-19] MEDS: FUROSEMIDE 40 MG/4 ML VIAL IV SCH (15:13)
[2020-06-19] MEDS ORDERED: carvediloL 12.5 MG TABLET PO SCH (17:00)
[2020-06-19] MEDS: carvediloL 25 MG TABLET PO SCH (17:06)
[2020-06-19] MEDS: hydrALAZINE 25 MG TABLET PO SCH (20:41)
[2020-06-19] MEDS: FERROUS SULFATE 325 MG TABLET PO SCH (20:41)
[2020-06-19] MEDS: ENOXAPARIN 40 MG/0.4 ML SYRINGE SUBCUT SCH (20:41)
[2020-06-20 06:06] LABS: Basophils # 0.1 10*3/uL (0.0-0.2); Basophils % 0.9 % (0.0-0.8); Eosinophils # 0.2 10*3/uL (0.0-0.87); Eosinophils % 2.5 % (0.00-10.9); Hematocrit 40.4 VOL% (42.0-52.0); Hemoglobin 12.9 GM/DL (14.0-18.0); Immature Granulocytes % 0.4 %; Immature Granulocytes Absolute 0.03 #; Lymphocytes # 1.4 10*3/uL (1.4-4.0); Lymphocytes % 20.5 % (21.2-54.2); Mean Corpuscular HGB Conc 31.9 GM/DL (32-36); Mean Corpuscular Volume 88.6 FL (87-102); Mean Platelet Volume 11.1 FL (9.6-12.0); Monocytes % 12.5 % (1.7-12.7); Neutrophils % 63.2 % (38.7-73.9); Platelet Count 193 T/CUMM (130-400); Red Blood Count 4.56 MC/CUMM (3.8-5.5); Red Cell Distribution Width 15.8 % (9.3-17.3); White Blood Count 6.7 T/CUMM (4-12)
[2020-06-20 06:21] LABS: Calcium 8.9 MG/DL (8.5-10.1); Osmolality,Calculated 265.9 MOS/KG (273-304)
[2020-06-20] MEDS: FERROUS SULFATE 325 MG TABLET PO SCH ×2 (09:29→20:29)
[2020-06-20] MEDS: hydrALAZINE 25 MG TABLET PO SCH ×3 (09:29→20:29)
[2020-06-20] MEDS: carvediloL 25 MG TABLET PO SCH (09:29)
[2020-06-20] MEDS: ASPIRIN EC 81 MG TABLET PO SCH (09:29)
[2020-06-20] MEDS: FUROSEMIDE 40 MG/4 ML VIAL IV SCH ×2 (09:29→16:15)
[2020-06-20] MEDS: SPIRONOLACTONE 25 MG TABLET PO SCH (09:29)
[2020-06-20 10:30] LABS: Risk Ratio 3.61
[2020-06-20] MEDS ORDERED: ALUM/MAG/SIMETH/LIDO VISC 1:1 30 ML BOTTLE PO ONE (13:14)
[2020-06-20] MEDS ORDERED: FUROSEMIDE 20 MG/2 ML VIAL IV ONE (14:56)
[2020-06-20] MEDS: carvediloL 12.5 MG TABLET PO SCH (16:15)
[2020-06-20] MEDS ORDERED: FUROSEMIDE 40 MG/4 ML VIAL IV ONE (17:52)
[2020-06-20] MEDS ORDERED: MELATONIN 3 MG TABLET PO ONE (20:03)
[2020-06-20] MEDS: ENOXAPARIN 40 MG/0.4 ML SYRINGE SUBCUT SCH (20:28)
[2020-06-20] MEDS: ATORVASTATIN 20 MG TABLET PO SCH (20:29)
[2020-06-21 06:22] LABS: Basophils # 0.1 10*3/uL (0.0-0.2); Basophils % 0.8 % (0.0-0.8); Eosinophils # 0.1 10*3/uL (0.0-0.87); Hematocrit 39.5 VOL% (42.0-52.0); Hemoglobin 12.8 GM/DL (14.0-18.0); Immature Granulocytes % 0.4 %; Immature Granulocytes Absolute 0.03 #; Lymphocytes # 1.4 10*3/uL (1.4-4.0); Lymphocytes % 19.3 % (21.2-54.2); Mean Corpuscular HGB Conc 32.4 GM/DL (32-36); Mean Corpuscular Volume 87.6 FL (87-102); Mean Platelet Volume 11.1 FL (9.6-12.0); Monocytes % 10.8 % (1.7-12.7); Neutrophils % 67.7 % (38.7-73.9); Platelet Count 199 T/CUMM (130-400); Red Blood Count 4.51 MC/CUMM (3.8-5.5); White Blood Count 7.2 T/CUMM (4-12)
[2020-06-21 06:45] LABS: Calcium 8.7 MG/DL (8.5-10.1); Osmolality,Calculated 260.2 MOS/KG (273-304)
[2020-06-21] MEDS: carvediloL 12.5 MG TABLET PO SCH ×2 (09:42→16:17)
[2020-06-21] MEDS: SPIRONOLACTONE 25 MG TABLET PO SCH (09:42)
[2020-06-21] MEDS: ASPIRIN EC 81 MG TABLET PO SCH (09:42)
[2020-06-21] MEDS: FERROUS SULFATE 325 MG TABLET PO SCH ×2 (09:42→20:26)
[2020-06-21] MEDS: FUROSEMIDE 40 MG/4 ML VIAL IV SCH ×2 (09:42→16:17)
[2020-06-21] MEDS: hydrALAZINE 25 MG TABLET PO SCH ×3 (09:42→20:27)
[2020-06-21] MEDS ORDERED: LACTULOSE 20 GM/30 ML UDCUP PO ONE (09:54)
[2020-06-21] MEDS ORDERED: MAGNESIUM CITRATE 300 ML BOTTLE PO ONE (09:54)
[2020-06-21] MEDS ORDERED: MELATONIN 3 MG TABLET PO PRN (19:53)
[2020-06-21] MEDS: ATORVASTATIN 20 MG TABLET PO SCH (20:27)
[2020-06-21] MEDS: ENOXAPARIN 40 MG/0.4 ML SYRINGE SUBCUT SCH (20:27)
[2020-06-22 05:48] LABS: Basophils # 0.1 10*3/uL (0.0-0.2); Basophils % 0.9 % (0.0-0.8); Eosinophils # 0.1 10*3/uL (0.0-0.87); Eosinophils % 1.7 % (0.00-10.9); Hematocrit 38.4 VOL% (42.0-52.0); Hemoglobin 12.6 GM/DL (14.0-18.0); Immature Granulocytes % 0.4 %; Immature Granulocytes Absolute 0.03 #; Lymphocytes # 1.4 10*3/uL (1.4-4.0); Lymphocytes % 18.1 % (21.2-54.2); Mean Corpuscular HGB Conc 32.8 GM/DL (32-36); Mean Corpuscular Volume 86.5 FL (87-102); Mean Platelet Volume 10.9 FL (9.6-12.0); Monocytes % 9.8 % (1.7-12.7); Neutrophils % 69.1 % (38.7-73.9); Platelet Count 197 T/CUMM (130-400); Red Blood Count 4.44 MC/CUMM (3.8-5.5); White Blood Count 7.5 T/CUMM (4-12)
[2020-06-22 05:57] LABS: Calcium 8.9 MG/DL (8.5-10.1); Osmolality,Calculated 263.4 MOS/KG (273-304)
[2020-06-22] MEDS: SPIRONOLACTONE 25 MG TABLET PO SCH ×2 (09:23→20:18)
[2020-06-22] MEDS: FERROUS SULFATE 325 MG TABLET PO SCH ×2 (09:23→20:17)
[2020-06-22] MEDS: carvediloL 12.5 MG TABLET PO SCH ×2 (09:24→16:32)
[2020-06-22] MEDS: hydrALAZINE 25 MG TABLET PO SCH ×2 (09:24→16:20)
[2020-06-22] MEDS: ASPIRIN EC 81 MG TABLET PO SCH (09:24)
[2020-06-22] MEDS: FUROSEMIDE 40 MG/4 ML VIAL IV SCH ×2 (09:25→16:32)
[2020-06-22] MEDS ORDERED: metOLazone 5 MG TABLET PO ONE (09:35)
[2020-06-22 13:51] LABS: INR 1.1; PT Patient Result 11.9 SECS (9.8-11.9)
[2020-06-22] MEDS: ENOXAPARIN 40 MG/0.4 ML SYRINGE SUBCUT SCH (20:17)
[2020-06-22] MEDS: ATORVASTATIN 20 MG TABLET PO SCH (20:17)
[2020-06-23] MEDS: ASPIRIN EC 81 MG TABLET PO SCH (08:24)
[2020-06-23] MEDS: carvediloL 12.5 MG TABLET PO SCH (08:24)
[2020-06-23] MEDS: SPIRONOLACTONE 25 MG TABLET PO SCH (08:24)
[2020-06-23] MEDS: FUROSEMIDE 40 MG/4 ML VIAL IV SCH (08:24)
[2020-06-23] MEDS: FERROUS SULFATE 325 MG TABLET PO SCH (08:25)
[2020-06-23 08:28] VITALS: BP 114/70
[2020-06-23 08:52] LABS: Basophils # 0.1 10*3/uL (0.0-0.2); Basophils % 0.8 % (0.0-0.8); Eosinophils # 0.1 10*3/uL (0.0-0.87); Eosinophils % 1.8 % (0.00-10.9); Hematocrit 38.8 VOL% (42.0-52.0); Hemoglobin 12.8 GM/DL (14.0-18.0); Immature Granulocytes % 0.4 %; Immature Granulocytes Absolute 0.03 #; Lymphocytes # 1.3 10*3/uL (1.4-4.0); Lymphocytes % 16.7 % (21.2-54.2); Mean Corpuscular Volume 86.4 FL (87-102); Mean Platelet Volume 10.6 FL (9.6-12.0); Monocytes % 11.5 % (1.7-12.7); Neutrophils % 68.8 % (38.7-73.9); Platelet Count 202 T/CUMM (130-400); Red Blood Count 4.49 MC/CUMM (3.8-5.5); Red Cell Distribution Width 15.9 % (9.3-17.3); White Blood Count 7.9 T/CUMM (4-12)
[2020-06-23 10:59] LABS: Calcium 8.7 MG/DL (8.5-10.1); Osmolality,Calculated 264.4 MOS/KG (273-304)
[2020-06-23] MEDS ORDERED: FUROSEMIDE 40 MG TABLET PO SCH (16:00)
[2020-06-24] MEDS ORDERED: SPIRONOLACTONE 25 MG TABLET PO SCH (09:00)
== END 2020-06-23 11:25 | disposition home or self-care (01) | DRG 194 ==
LOC: N.ED 07:36 → N.EDINP 12:24 → SUATTDRO 12:24 → N.TELEN 13:16
PROVIDERS: ADMIT Internal Medicine; ATTEND Family Medicine

== ENCOUNTER 2020-10-10 06:24 | Observation (INO) ==
[2020-10-10 06:55] LABS: Basophils # 0.1 10*3/uL (0.0-0.2); Basophils % 1.3 % (0.0-0.8); Eosinophils # 0.1 10*3/uL (0.0-0.87); Eosinophils % 1.1 % (0.00-10.9); Hematocrit 44.9 VOL% (42.0-52.0); Hemoglobin 14.4 GM/DL (14.0-18.0); Immature Granulocytes % 0.4 %; Immature Granulocytes Absolute 0.03 #; Lymphocytes # 1.7 10*3/uL (1.4-4.0); Lymphocytes % 20.3 % (21.2-54.2); Mean Corpuscular HGB Conc 32.1 GM/DL (32-36); Mean Corpuscular Volume 93.3 FL (87-102); Mean Platelet Volume 10.2 FL (9.6-12.0); Monocytes % 12.5 % (1.7-12.7); Neutrophils % 64.4 % (38.7-73.9); Platelet Count 243 T/CUMM (130-400); Red Blood Count 4.81 MC/CUMM (3.8-5.5); Red Cell Distribution Width 15.2 % (9.3-17.3); White Blood Count 8.5 T/CUMM (4-12)
[2020-10-10 07:09] LABS: Albumin 3.9 G/DL (3.4-5.0); Bilirubin,Total 2.5 MG/DL (0.2-1.0); Calcium 9.6 MG/DL (8.5-10.1); Osmolality,Calculated 263.2 MOS/KG (273-304); Potassium 4.5 MMOL/L (3.5-5.1); Total Protein 8.7 G/DL (6.4-8.2)
[2020-10-10] MEDS ORDERED: FUROSEMIDE 100 MG/10 ML VIAL IV STA (07:11)
[2020-10-10] MEDS ORDERED: FUROSEMIDE 100 MG/10 ML VIAL ONE (07:13)
[2020-10-10 08:19] LABS: Bilirubin,Urine Negative (Negative); Blood, Urine Negative (Negative); Glucose,Urine (UA) Negative (Negative); Hyaline Casts,Urine 15 /LPF (0-3); Ketones,Urine Negative (Negative); Nitrite,Urine Negative (Negative); Protein,Urine 100 MG/DL; RBC,Urine 4 /HPF (0-4); Sperm,Urine Occasional /HPF (Negative); Squamous Epithelial Cell,Urine Occasional /HPF (0-10); Urine Appearance CLEAR (Clear); Urine Color Yellow (Yellow); WBC,Urine 3 /HPF (0-6)
[2020-10-10 08:49] LABS: Barbiturates Screen,Urine Negative (Negative); Benzodiazepines Screen,Urine Negative (Negative); Cannabinoid Screen,Urine Negative (Negative); Opiate Screen,Urine Negative (Negative); Phencyclidine Screen,Urine Negative (Negative)
[2020-10-10] MEDS ORDERED: ONDANSETRON 4 MG/2 ML VIAL IV PRN (10:39)
[2020-10-10] MEDS ORDERED: ACETAMINOPHEN 325 MG TABLET PO PRN (10:39)
[2020-10-10] MEDS ORDERED: DEXTROSE 50% 25 GM/50 ML VIAL IV PRN (10:39)
[2020-10-10] MEDS ORDERED: GLUCAGON 1 MG VIAL IM PRN (10:39)
[2020-10-10 10:58] LABS: INR 1.4; Partial Thromboplastin Time 32.5 SECS (23.9-33.8)
[2020-10-10] MEDS ORDERED: carvediloL 12.5 MG TABLET PO ONE (12:59)
[2020-10-10] MEDS ORDERED: FUROSEMIDE 40 MG/4 ML VIAL IV SCH (16:00)
[2020-10-10] MEDS ORDERED: SODIUM CHLORIDE 0.9% 500 ML IV ONE (16:15)
[2020-10-10] MEDS ORDERED: carvediloL 12.5 MG TABLET PO SCH ×2 (17:00→21:00)
[2020-10-10] MEDS ORDERED: FUROSEMIDE 40 MG TABLET PO SCH (21:00)
[2020-10-10] MEDS: hydrALAZINE 25 MG TABLET PO SCH (23:44)
[2020-10-11 05:51] LABS: Basophils # 0.1 10*3/uL (0.0-0.2); Basophils % 0.9 % (0.0-0.8); Eosinophils # 0.1 10*3/uL (0.0-0.87); Eosinophils % 0.5 % (0.00-10.9); Hematocrit 42.9 VOL% (42.0-52.0); Hemoglobin 13.6 GM/DL (14.0-18.0); Immature Granulocytes % 0.8 %; Immature Granulocytes Absolute 0.08 #; Lymphocytes # 1.8 10*3/uL (1.4-4.0); Lymphocytes % 16.5 % (21.2-54.2); Mean Corpuscular HGB Conc 31.7 GM/DL (32-36); Mean Corpuscular Volume 93.5 FL (87-102); Mean Platelet Volume 10.9 FL (9.6-12.0); Monocytes % 11.8 % (1.7-12.7); Neutrophils % 69.5 % (38.7-73.9); Platelet Count 230 T/CUMM (130-400); Red Blood Count 4.59 MC/CUMM (3.8-5.5); Red Cell Distribution Width 14.9 % (9.3-17.3); White Blood Count 10.6 T/CUMM (4-12)
[2020-10-11 06:13] LABS: Calcium 9.2 MG/DL (8.5-10.1); Osmolality,Calculated 259.6 MOS/KG (273-304)
[2020-10-11 06:27] LABS: Potassium 6.1 MMOL/L (3.5-5.1)
[2020-10-11] MEDS ORDERED: DEXTROSE 50% 25 GM/50 ML VIAL IV ONE (06:34)
[2020-10-11] MEDS ORDERED: SODIUM POLYSTYRENE SULFATE 15 GM/60 ML BOTTLE PO STA (06:36)
[2020-10-11] MEDS ORDERED: INSULIN REGULAR 100 UNIT/ML IV ONE (06:36)
[2020-10-11] MEDS ORDERED: CALCIUM GLUCONATE 1,000 MG in SODIUM CHLORIDE 0.9% 100 ML IV ONE (07:00)
[2020-10-11] MEDS ORDERED: NITROGLYCERIN SL 0.4 MG TABLET SL PRN (07:36)
[2020-10-11] MEDS: hydrALAZINE 25 MG TABLET PO SCH (08:04)
[2020-10-11] MEDS ORDERED: carvediloL 12.5 MG TABLET PO SCH (09:00)
[2020-10-11] MEDS ORDERED: CLOPIDOGREL 75 MG TABLET PO SCH (09:00)
[2020-10-11] MEDS ORDERED: SACUBITRIL/VALSARTAN 49-51 MG TABLET PO SCH (09:00)
[2020-10-11 11:43] VITALS: BP 103/75
[2020-10-11 11:55] LABS: Calcium 8.6 MG/DL (8.5-10.1); Osmolality,Calculated 271.1 MOS/KG (273-304); Potassium 4.5 MMOL/L (3.5-5.1)
== END 2020-10-11 13:48 | disposition home or self-care (01) ==
LOC: N.ED 06:24 → N.EDINP 06:24 → N.5E 12:20
PROVIDERS: ADMIT Internal Medicine Geriatric Medicine; ATTEND Internal Medicine Geriatric Medicine

== ENCOUNTER 2020-10-20 23:16 | Inpatient (IN) ==
[2020-10-20] MEDS ORDERED: ALBUTEROL NEB SOLN 5 MG/ML 20 ML/BOTTLE CONT NEB SCH (23:45)
[2020-10-20] MEDS ORDERED: methylPREDNISolone SOD SUC 125 MG/2 ML VIAL IV STA (23:53)
[2020-10-20] MEDS ORDERED: ONDANSETRON 4 MG/2 ML VIAL IV STA (23:53)
[2020-10-20] MEDS ORDERED: FUROSEMIDE 40 MG/4 ML VIAL IV STA (23:53)
[2020-10-21] MEDS ORDERED: ALBUTEROL 2.5 MG/3 ML NEB RESP TX ONE (00:05)
[2020-10-21 00:10] LABS: Basophils # 0.1 10*3/uL (0.0-0.2); Eosinophils # 0.2 10*3/uL (0.0-0.87); Eosinophils % 1.6 % (0.00-10.9); Hemoglobin 12.4 GM/DL (14.0-18.0); Immature Granulocytes % 0.2 %; Immature Granulocytes Absolute 0.02 #; Lymphocytes # 1.4 10*3/uL (1.4-4.0); Lymphocytes % 14.8 % (21.2-54.2); Mean Corpuscular HGB Conc 32.6 GM/DL (32-36); Mean Platelet Volume 10.1 FL (9.6-12.0); Monocytes % 10.9 % (1.7-12.7); Neutrophils % 71.5 % (38.7-73.9); Platelet Count 205 T/CUMM (130-400); Red Blood Count 4.22 MC/CUMM (3.8-5.5); Red Cell Distribution Width 15.4 % (9.3-17.3); White Blood Count 9.2 T/CUMM (4-12)
[2020-10-21 00:16] LABS: INR 1.4; PT Patient Result 14.4 SECS (9.8-11.9)
[2020-10-21 00:17] LABS: ABG Base Excess 2.2 MMOL/L (-2.5-2.5); ABG HCO3 26.3 MMOL/L (20-26); ABG Oxygen Saturation 95.5 % (95-100); ABG PCO2 39.1 MM HG (35-48); ABG PH 7.446 (7.35-7.45); ABG PO2 79.4 MM HG (80-95); ABG TCO2 27.5 MMOL/L (23-27)
[2020-10-21 00:24] LABS: Albumin 3.3 G/DL (3.4-5.0); Bilirubin,Total 1.5 MG/DL (0.2-1.0); Calcium 8.7 MG/DL (8.5-10.1); Osmolality,Calculated 266.1 MOS/KG (273-304); Potassium 4.2 MMOL/L (3.5-5.1); Total Protein 7.3 G/DL (6.4-8.2)
[2020-10-21] MEDS ORDERED: GLUCAGON 1 MG VIAL IM PRN (01:10)
[2020-10-21] MEDS ORDERED: ACETAMINOPHEN 325 MG TABLET PO PRN (01:10)
[2020-10-21] MEDS ORDERED: ONDANSETRON 4 MG/2 ML VIAL IV PRN (01:10)
[2020-10-21] MEDS ORDERED: DEXTROSE 50% 25 GM/50 ML VIAL IV PRN (01:10)
[2020-10-21] MEDS ORDERED: LORazepam 2 MG/1 ML VIAL IV PRN (01:16)
[2020-10-21] MEDS ORDERED: NICOTINE 21 MG/24 HR PATCH TRANSDERM PRN (02:11)
[2020-10-21 04:34] LABS: Barbiturates Screen,Urine Negative (Negative); Benzodiazepines Screen,Urine Negative (Negative); Cannabinoid Screen,Urine Negative (Negative); Opiate Screen,Urine Negative (Negative); Phencyclidine Screen,Urine Negative (Negative)
[2020-10-21 06:15] LABS: Basophils % 0.3 % (0.0-0.8); Eosinophils % 0.3 % (0.00-10.9); Hematocrit 39.2 VOL% (42.0-52.0); Hemoglobin 12.7 GM/DL (14.0-18.0); Immature Granulocytes % 0.7 %; Immature Granulocytes Absolute 0.05 #; Lymphocytes # 0.5 10*3/uL (1.4-4.0); Mean Corpuscular HGB Conc 32.4 GM/DL (32-36); Mean Corpuscular Volume 91.2 FL (87-102); Mean Platelet Volume 10.4 FL (9.6-12.0); Monocytes % 1.6 % (1.7-12.7); Neutrophils % 90.1 % (38.7-73.9); Platelet Count 215 T/CUMM (130-400); Red Cell Distribution Width 15.5 % (9.3-17.3); White Blood Count 7.5 T/CUMM (4-12)
[2020-10-21 06:36] LABS: Albumin 3.3 G/DL (3.4-5.0); Calcium 9.1 MG/DL (8.5-10.1); Osmolality,Calculated 266.2 MOS/KG (273-304); Potassium 4.8 MMOL/L (3.5-5.1); Risk Ratio 4.41; Total Protein 8.1 G/DL (6.4-8.2); VLDL CHOLESTEROL 11.2 MG/DL
[2020-10-21] MEDS: ALBUTEROL 1.25 MG/3 ML NEB RESP TX SCH ×3 (07:13→19:17)
[2020-10-21] MEDS ORDERED: NITROGLYCERIN SL 0.4 MG TABLET SL PRN (07:53)
[2020-10-21] MEDS ORDERED: FUROSEMIDE 40 MG/4 ML VIAL IV SCH (08:00)
[2020-10-21] MEDS: THIAMINE 100 MG TABLET PO SCH (08:43)
[2020-10-21] MEDS: carvediloL 12.5 MG TABLET PO SCH ×2 (08:43→18:40)
[2020-10-21] MEDS: CLOPIDOGREL 75 MG TABLET PO SCH (08:43)
[2020-10-21] MEDS: FOLIC ACID 1 MG TABLET PO SCH (08:43)
[2020-10-21] MEDS: FERROUS GLUCONATE 324 MG TABLET PO SCH ×2 (08:43→21:03)
[2020-10-21] MEDS: ASPIRIN EC 81 MG TABLET PO SCH (08:43)
[2020-10-21] MEDS: SACUBITRIL/VALSARTAN 49-51 MG TABLET PO SCH ×2 (08:43→20:59)
[2020-10-21] MEDS: ENOXAPARIN 40 MG/0.4 ML SYRINGE SUBCUT SCH (08:44)
[2020-10-21] MEDS: FUROSEMIDE 40 MG/4 ML VIAL IV SCH ×2 (08:44→17:54)
[2020-10-21] MEDS ORDERED: predniSONE 20 MG TABLET PO SCH (09:00)
[2020-10-21] MEDS ORDERED: hydrALAZINE 25 MG TABLET PO SCH (09:00)
[2020-10-21] MEDS ORDERED: ISOSORBIDE MONONITRATE 30 MG TABLET PO SCH (09:00)
[2020-10-21] MEDS ORDERED: PANTOPRAZOLE 40 MG TABLET PO SCH (09:00)
[2020-10-21] MEDS ORDERED: POLYVINYL ALCOHOL 1.4% OPH SOLN 15 ML BOTTLE BOTH EYES PRN (11:03)
[2020-10-21] MEDS ORDERED: ATORVASTATIN 20 MG TABLET PO SCH (21:00)
[2020-10-22] MEDS: ALBUTEROL 1.25 MG/3 ML NEB RESP TX SCH ×4 (00:38→19:30)
[2020-10-22 05:35] LABS: Basophils % 0.1 % (0.0-0.8); Hematocrit 40.4 VOL% (42.0-52.0); Hemoglobin 12.8 GM/DL (14.0-18.0); Immature Granulocytes % 0.5 %; Immature Granulocytes Absolute 0.09 #; Lymphocytes % 5.5 % (21.2-54.2); Mean Corpuscular HGB Conc 31.7 GM/DL (32-36); Mean Corpuscular Volume 92.7 FL (87-102); Mean Platelet Volume 10.3 FL (9.6-12.0); Monocytes % 8.3 % (1.7-12.7); Neutrophils % 85.6 % (38.7-73.9); Platelet Count 258 T/CUMM (130-400); Red Blood Count 4.36 MC/CUMM (3.8-5.5); Red Cell Distribution Width 15.5 % (9.3-17.3); White Blood Count 18.5 T/CUMM (4-12)
[2020-10-22 06:24] LABS: Calcium 9.2 MG/DL (8.5-10.1); Osmolality,Calculated 264.5 MOS/KG (273-304); Potassium 4.7 MMOL/L (3.5-5.1)
[2020-10-22] MEDS: THIAMINE 100 MG TABLET PO SCH (09:19)
[2020-10-22] MEDS: FERROUS GLUCONATE 324 MG TABLET PO SCH ×2 (09:19→21:19)
[2020-10-22] MEDS: FOLIC ACID 1 MG TABLET PO SCH (09:19)
[2020-10-22] MEDS: carvediloL 12.5 MG TABLET PO SCH ×2 (09:20→16:12)
[2020-10-22] MEDS ORDERED: SODIUM CHLORIDE 0.9% 500 ML IV ONE (20:12)
[2020-10-22] MEDS ORDERED: DOBUTamine 500 MG/250 ML PREMIX IV PRN ×2 (22:16→22:26)
[2020-10-22 22:31] VITALS: BP 78/58
[2020-10-23] MEDS: ALBUTEROL 1.25 MG/3 ML NEB RESP TX SCH ×4 (00:09→18:23)
[2020-10-23] MEDS: THIAMINE 100 MG TABLET PO SCH (08:42)
[2020-10-23] MEDS: FOLIC ACID 1 MG TABLET PO SCH (08:42)
[2020-10-23] MEDS: FERROUS GLUCONATE 324 MG TABLET PO SCH ×2 (08:42→21:23)
[2020-10-23 09:01] LABS: Bilirubin,Total 1.1 MG/DL (0.2-1.0); Calcium 8.1 MG/DL (8.5-10.1); Osmolality,Calculated 268.6 MOS/KG (273-304); Total Protein 7.4 G/DL (6.4-8.2)
[2020-10-23 09:13] LABS: Potassium 5.3 MMOL/L (3.5-5.1)
[2020-10-23] MEDS ORDERED: SODIUM CHLORIDE 0.9% 1,000 ML IV SCH (10:00)
[2020-10-23 11:26] LABS: Lymphocytes,Pleural Fluid 96 %; Neutrophils,Pleural Fluid 4 %
[2020-10-23 11:28] LABS: RBC,Pleural Fluid 10211 T/CUMM
[2020-10-23 11:30] LABS: LDH,Pleural Fluid 124 U/L; Total Protein,Pleural Fluid 3.2 G/DL
[2020-10-23] MEDS: HYDROCORTISONE 100 MG VIAL IV SCH ×2 (12:25→18:00)
[2020-10-24] MEDS: HYDROCORTISONE 100 MG VIAL IV SCH ×2 (00:54→08:51)
[2020-10-24] MEDS: ALBUTEROL 1.25 MG/3 ML NEB RESP TX SCH ×2 (01:46→07:15)
[2020-10-24 05:59] LABS: Calcium 8.3 MG/DL (8.5-10.1); Osmolality,Calculated 274.4 MOS/KG (273-304); Potassium 4.7 MMOL/L (3.5-5.1)
[2020-10-24] MEDS: FERROUS GLUCONATE 324 MG TABLET PO SCH (08:49)
[2020-10-24] MEDS: THIAMINE 100 MG TABLET PO SCH (08:50)
[2020-10-24] MEDS: FOLIC ACID 1 MG TABLET PO SCH (08:50)
[2020-10-24] MEDS: ENOXAPARIN 40 MG/0.4 ML SYRINGE SUBCUT SCH (12:18)
[2020-10-24] MEDS: ASPIRIN EC 81 MG TABLET PO SCH (12:18)
[2020-10-24] MEDS: CLOPIDOGREL 75 MG TABLET PO SCH (12:19)
== END 2020-10-24 09:47 | disposition left against medical advice (07) | DRG 194 ==
LOC: N.EDINP 23:16 → N.ED 23:16 → SUATTDRO 10-21 01:10 → N.TELES 10-21 02:36 → N.ICU 10-22 21:58 → SUATTDRO 10-23 07:48
PROVIDERS: ADMIT Internal Medicine; ATTEND Internal Medicine